=== PATIENT | male | born 1970 | race Caucasian/White ===

== ENCOUNTER 2017-05-06 14:06 | Emergency (ER) | payer OTHER ==
[2017-05-06] MEDS ORDERED: Acetaminophen TAB* 325 MG PO ONE (16:32)
[2017-05-06 16:45] LABS: Hematocrit 50 % (42-52); Hemoglobin 16.6 g/dl (14.0-18.0); Mean Corpuscular HGB Conc 33 g/dl (31-36); Mean Corpuscular Hemoglobin 29 pg (27-31); Mean Corpuscular Volume 87 fL (80-94); Mean Platelet Volume 9 um3 (7.4-10.4); Red Blood Count 5.76 10^6/ul (4.0-5.4); Red Cell Distribution Width 15 % (10.5-15); White Blood Count 10.6 10^3/ul (3.5-10.8)
[2017-05-06 17:02] LABS: Urine Bilirubin Negative (Negative); Urine Glucose Negative (Negative); Urine Nitrite Negative (Negative)
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
[2017-05-06 17:04] VITALS: BP 127/73
[2017-05-06 17:04] LABS: Albumin 4.2 g/dL (3.2-5.2); BUN/Creatinine Ratio 11.3 (8-20); Calcium 9.4 mg/dL (8.6-10.3); EGFR Non-African American 120.5 (>60); Globulin 2.8 g/dL (2-4); Potassium 3.9 mmol/L (3.5-5.0); Total Bilirubin 1.3 mg/dL (0.2-1.0)
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
== END 2017-05-06 18:28 | disposition home or self-care (01) ==
LOC: ED 14:06
DX: S50.02XA Contusion of left elbow, initial encounter (principal); S20.219A Contusion of unspecified front wall of thorax, initial encounter; S09.90XA Unspecified injury of head, initial encounter; R05 Cough; F17.210 Nicotine dependence, cigarettes, uncomplicated; V49.49XA Driver injured in collision with other motor vehicles in traffic accident, initial encounter; Y93.9 Activity, unspecified; Y92.9 Unspecified place or not applicable; Y99.9 Unspecified external cause status
CPT/HCPCS: 36415; 70450; 71020; 72125; 80053; 81003; 83605; 85025; 99282; A9270-GY

== ENCOUNTER 2017-12-12 22:45 | Emergency (ER) | payer BC, OTHER ==
[2017-12-13] MEDS ORDERED: predniSONE TAB* 20 MG PO ONE (00:31)
[2017-12-13] MEDS ORDERED: Albuterol/Ipratropium NEB.SOL* Albuterol 2.5 MG/Ipratropium 0.5 MG 3 ML INH ONE (00:31)
[2017-12-13 01:24] VITALS: BP 147/92
--- NOTE | 2017-12-13 06:06 | ED ---
Ilir Cha Angela, scribed for Mynor Khan MD on 12/13/17 at 0032 . Complex/Multi-Sys Presentation - HPI Summary HPI Summary: This pt is a 47 y/o male [place] [facility]. Pt reports he has had this hernia for 2 years now. He states his hernia has been increasing in size. He additionally c/o cough (for 1 year), congestion, runny nose, body aches, and chills for the past 3 days. He denies fever. Pt notes his abd hernia pain is aggravated with his cough. Pt denies urinary symptoms, constipation, diarrhea. Pt is a current smoker. - History Of Current Complaint Chief Complaint: EDAbdPain Time Seen by Provider: 12/13/17 00:21 Hx Obtained From: Patient Onset/Duration: Lasting Days, Still Present Timing: Days Location: Pain At: - inguinal hernia site Aggravating Factor(s): cough Alleviating Factor(s): nothing Associated Signs And Symptoms: Positive: Cough, Other - POS: inguinal hernia pain, congestion, rhinorrhea, body aches, chills.. Negative: Fever - Allergies/Home Medications Allergies/Adverse Reactions: Allergies Allergy/AdvReac Type Severity Reaction Status Date / Time No Known Allergies Allergy Verified 05/06/17 16:00 PMH/Surg Hx/FS Hx/Imm Hx Endocrine/Hematology History: Denies: Hx Diabetes Cardiovascular History: Denies: Hx Hypertension Infectious Disease History: No Infectious Disease History: Denies: Traveled Outside the [place] in Last 30 Days - Family History Known Family History: Negative: Cardiac Disease, Hypertension - Social History Alcohol Use: None Hx Substance Use: No Substance Use Type: Reports: None Hx Tobacco Use: Yes Smoking Status (MU): Heavy Every Day Tobacco Smoker Review of Systems Positive: Chills. Negative: Fever Positive: Nasal Discharge, Other - congestion Positive: Cough - chronic Gastrointestinal: Other - inguinal hernia pain Negative: Diarrhea, Other - constipation Positive: Myalgia All Other Systems Reviewed And Are Negative: Yes Physical Exam - Summary Physical Exam Summary: Appearance: Well appearing, no pain distress Skin: warm, dry, reflects adequate perfusion Head/face: normal Eyes: EOMI, ELIEZER ENT: normal Neck: supple, non-tender Respiratory: breath sounds present. Decreased aeration and expiratory wheeze. Cardiovascular: RRR, pulses symmetrical Abdomen: non-tender, soft. Large easily reducible inguinal hernia. Bowel: present Musculoskeletal: normal, strength/ROM intact Neuro: normal, sensory motor intact, A&Ox3 Triage Information Reviewed: Yes Vital Signs On Initial Exam: Initial Vitals Temp Pulse Resp BP Pulse Ox 97.5 F 83 16 138/110 100 12/12/17 22:49 12/12/17 22:49 12/12/17 22:49 12/12/17 22:49 12/12/17 22:49 Vital Signs Reviewed: Yes Diagnostics - Vital Signs Vital Signs Temp Pulse Resp BP Pulse Ox 12/12/17 22:49 97.5 F 83 16 138/110 100 - Laboratory Lab Statement: Any lab studies that have been ordered have been reviewed, and results considered in the medical decision making process. - Radiology Chest XR Xray Interpretation: No Acute Changes - no acute infiltrate. Radiology Interpretation Completed By: ED Physician Complex Multi-Symp Course/Dx Course Of Treatment: pt with coughing and FLU like illness with increasing discomfort in his long standing inguinal hernia. Hernia is soft and reducible without pain or redness. Refer to surg for repair. - Diagnoses Provider Diagnoses: Influenza-like illness, Reducible inguinal hernia Discharge - Discharge Plan Condition: Good Disposition: HOME Prescriptions: Albuterol HFA INHALER* [Ventolin HFA Inhaler*] 2 puff INH Q4H PRN #1 mdi PRN Reason: Shortness Of Breath Benzonatate [TESSALON 200 MG CAP] 200 mg PO Q6H PRN #20 cap PRN Reason: Cough Guaifenesin [Mucinex Maximum Strength] 1,200 mg PO BID #10 tab predniSONE TAB* [Deltasone TAB*] 50 mg PO DAILY #4 tab Patient Education Materials: Influenza (ED), Inguinal Hernia (ED) Forms: *Work Release Referrals: [facility] [Outside] Titi Stakr MD [Medical Doctor] - Additional Instructions: call surgery to schedule appt to have hernia evaluated for repair Return with increased hernia pain/redness/swelling; Return for short of breath, high fever, worse or other concerns. The documentation as recorded by the Ilir gutiérrez Angela accurately reflects the service I personally performed and the decisions made by , Mynor Khan MD.
--- NOTE | 2017-12-13 07:47 | RAD ---
INDICATION: Cough COMPARISON: May 06, 2017 TECHNIQUE: PA and lateral dual-energy views were obtained. FINDINGS: Bones/Soft Tissues: There are no acute bony findings. Cardiomediastinal: The cardiomediastinal silhouette is normal. Lungs: There are no infiltrates. There is hyperinflation. Pleura: There are no pleural effusions. Other: None IMPRESSION: HYPERINFLATION. NO ACTIVE DISEASE.
== END 2017-12-13 01:27 | disposition home or self-care (01) ==
LOC: ED 22:45
DX: J11.1 Influenza due to unidentified influenza virus with other respiratory manifestations (principal); K40.90 Unilateral inguinal hernia, without obstruction or gangrene, not specified as recurrent; R05 Cough; R09.81 Nasal congestion; J34.89 Other specified disorders of nose and nasal sinuses; F17.210 Nicotine dependence, cigarettes, uncomplicated
CPT/HCPCS: 71046; 94640; 99282; A9270-GY; J7512

== ENCOUNTER 2018-01-01 06:03 | Day surgery (SDC) | payer BC ==
--- NOTE | 2017-12-19 10:20 | HP ---
ADMISSION HISTORY AND PHYSICAL: DATE OF ADMISSION: 01/01/18 - [facility] ATTENDING SURGEON: Dr. Rafa Ceja * (DULCE Varghese dictating). CHIEF COMPLAINT: Right inguinal hernia. HISTORY OF PRESENT ILLNESS: This is a 47-year-old male, who first presented to our office in 2013, approximately 1 week after an injury at work when he noted a "pop". He was seen at that time by Dr. Wheeler, who diagnosed a right inguinal hernia and recommended repair. The patient states that his workplace denied the Workers' Comp claim and he did not pursue surgery at that time because he was otherwise asymptomatic. More recently, he has had an increased cough and noted increased swelling and discomfort in the right groin area. In the past, it had always self reduced when he is recumbent. He had severe pain in the right lower quadrant on 12/12/17 along with cough and flu-like symptoms and presented to the ED. A chest x- ray at that time showed no acute disease or infiltrate. He was treated with a short course of prednisone, Tessalon Perles and an inhaler (which he did not tolerate). At this point, he seems to be improving. He denies fevers or chills. He was seen in the office by Dr. Ceja on 12/16/17, at which time, exam confirmed the presence of a moderately large right inguinal hernia. This was reducible and nontender. Dr. Ceja has discussed with him the indications for repair, the risks, benefits, and alternatives including the option of no surgery. The patient understands the expected perioperative course and would like to proceed as scheduled with open repair right inguinal hernia with mesh. PAST MEDICAL HISTORY: Active tobacco use. He does not see a primary care provider. No other complaints. PAST SURGICAL HISTORY: Previous surgery includes dental extraction. CURRENT MEDICATIONS: 1. Mucinex D 1 tablet every 12 hours. 2. Tessalon Perles 1 tablet every 6 hours. 3. He just recently finished the short course of prednisone. 4. He is not currently using any inhalers. 5. He takes no other medications including fhpy-ocr-iulugdr or supplements. DRUG ALLERGIES: None. FAMILY HISTORY: Positive for what sounds like a DVT in his maternal aunt with no additional family history of thromboembolic disease. No family history of anesthesia problems or bleeding disorder. SOCIAL HISTORY: The patient lives with his daughter and 2 granddaughters. 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 He is a current smoker, 1-1/2 pack per day and we did discuss the benefits of smoking cessation and methods thereof. He denies use of alcohol or recreational drugs. REVIEW OF SYSTEMS: General: Recent flu-like illness as noted above. No other constitutional symptoms or acute illnesses. Cardiovascular: No chest pain, palpitations, or history of hypertension. Respiratory: No history of asthma. He has a significant smoking history and is an active smoker. Cough seems to have subsided significantly. GI: No nausea or vomiting. No significant lower GI symptoms with the exception of occasional constipation. He does not require any laxatives. : No difficulties reported in urination. Endocrine: No diabetes or thyroid dysfunction. PHYSICAL EXAMINATION GENERAL: Well-nourished, well-developed male, in no acute distress. VITAL SIGNS: Height 5 feet 8 inches, weight 185 pounds. Other vital signs per nursing. HEENT: Pupils are equal and round, reactive. EOMs intact. No conjunctival pallor. Oropharynx: He is edentulous. No intraoral lesions noted. NECK: No lymphadenopathy, thyromegaly, or masses. LUNGS: Clear to auscultation. No wheezes. HEART: Regular rate and rhythm. No murmur noted. BACK: No spinous process or CVA tenderness. ABDOMEN: Soft, nontender to palpation. No palpable masses or organomegaly with the exception of a moderately large right inguinal hernia examined today in the standing position only and apparently reducible and nontender. No hernia apparent on the left. RECTAL: Not done. EXTREMITIES: No edema. NEUROLOGICAL: Grossly intact. SKIN: Warm and dry. No suspicious rashes or lesions. IMPRESSION: Right inguinal hernia. PLAN: Open repair, right inguinal hernia with mesh. DULCE VARGHESE [id number]/[facility] #: [id number] MTDSandra
[~2018-01-01 06:03] MED LIST: Buffered Lidocaine 0.9% SYRIN* 5 ML/SYR SYRINGE INTRADERM ONE
[2018-01-01] MEDS ORDERED: ceFAZolin 1 GM in Dextrose (*) 2 GM/100 ML BAG IVPB ONE (06:10)
[2018-01-01] MEDS ORDERED: Buffered Lidocaine 0.9% SYRIN* 5 ML/SYR SYRINGE ONE (06:12)
[2018-01-01] MEDS ORDERED: Bupivacaine 0.5% SDV PF* 10-30ML VIAL ONE (07:02)
[2018-01-01] MEDS ORDERED: Lidocaine 1% MPF wEPI 200,000* 30 ML SDV ONE (07:02)
[2018-01-01] MEDS ORDERED: Bupivacaine 0.25% SDV* 30 ML ONE (07:03)
[2018-01-01] MEDS ORDERED: fentaNYL* 50 MCG/ML 2 ML VIAL (100 MCG VIAL) ONE ×2 (11:15→12:07)
[2018-01-01] MEDS ORDERED: Midazolam* 1 MG/ML 2 ML VIAL (2 MG) ONE ×2 (11:19→11:25)
[2018-01-01] MEDS ORDERED: Lidocaine 2% PF * 5 ML VIAL ONE (11:42)
[2018-01-01] MEDS ORDERED: Propofol* 10 MG/ML 20 ML BTL IV PUSH ONE (11:42)
[2018-01-01] MEDS ORDERED: fentaNYL* 50 MCG/ML 2 ML VIAL (100 MCG VIAL) IV PRN (12:11)
[2018-01-01] MEDS ORDERED: Naloxone* 0.4 MG/ML 1 ML VIAL IV PRN (12:11)
[2018-01-01] MEDS ORDERED: Ketorolac INJ* 30 MG/ML 1 ML VIAL IV PRN (12:11)
[2018-01-01] MEDS ORDERED: Ondansetron INJ* 2 MG/ML VIAL IV PRN (12:11)
[2018-01-01] MEDS ORDERED: oxyCODONE/Acetamin 5/325 MG* TAB PO PRN (12:52)
[2018-01-01] MEDS ORDERED: Ketorolac INJ* 30 MG/ML 1 ML VIAL ONE (13:23)
[2018-01-01 14:23] VITALS: BP 123/83
--- NOTE | 2018-01-09 05:33 | OP ---
DATE OF OPERATION: 01/01/18 - [facility] DATE OF : 74 SURGEON: Rafa Ceja MD CLEAN ENERGY POLICY ANALYST: DULCE Garber ANESTHESIA: Local MAC anesthesia. PRE-OP DIAGNOSIS: Right inguinal hernia. POST-OP DIAGNOSIS: Right inguinal hernia. OPERATIVE PROCEDURE: Right inguinal hernia repair with mesh. ESTIMATED BLOOD LOSS: Minimum blood loss. SPECIMEN: None. FLUIDS: 1000 mL of lactated Ringer's given. DRAINS: None. DESCRIPTION OF PROCEDURE: The patient was identified in the preoperative area, he was marked and taken to the operating suite, placed on table in the supine position. Preoperative antibiotics were given. Sequential devices placed on bilateral lower extremities. Gentle sedation was given. The patient's right groin hair was clipped and the abdomen prepped and draped in the standard surgical fashion and a time-out was performed. A right inguinal incision was made. This was deepened down through the layer down to the external oblique aponeurosis, which was incised along the direction of the fibers. Flaps were made both cephalad and caudad and the spermatic structures were then isolated on a [place] drain. A large sac which appeared first to be an indirect hernia was bluntly and sharply dissected off the spermatic structures. It then became apparent that this was a direct hernia, we identified the epigastric vessels. We continued our dissection down to transversalis fascia. We did incise this and make a plane, after we dunked the hernia sac deeper, we made a plane that would hold a Prolene hernia system. This was all bluntly dissected around the site right at the Yong's and laterally as well. Once we had this, we placed the mesh into the area, it was allowed to unfurl and painstakingly opened up along the full myopectineal orifice. We then opened up the outer portion of the mesh and tacked this to the pubic tubercle as well as along the shelving edge of the inguinal ligament. Slit was made to the external portion of this mesh to encompass the spermatic structures and mesh was then tucked laterally under the aponeurosis of external oblique. All sutures utilized were 2-0 Vicryl sutures. We then closed the external oblique aponeurosis in standard fashion and closed the incision in standard fashion. Steri-Strips and sterile dressing were applied. The patient tolerated the procedure well, was woken up in the OR and transferred to PACU in stable condition. [id number]/[facility] #: [id number] DUSTIN
== END 2018-01-01 14:23 | disposition home or self-care (01) ==
LOC: OR 06:03
PROVIDERS: ATTEND Surgery
DX: K40.90 Unilateral inguinal hernia, without obstruction or gangrene, not specified as recurrent (principal); Z72.0 Tobacco use
CPT/HCPCS: C1781; J0690; J1885; J2001; J2250; J2704; J3010

== ENCOUNTER 2019-08-29 19:57 | Emergency (ER) | payer BC, OTHER ==
[2019-08-29 20:18] VITALS: BP 153/81
[2019-08-29] MEDS ORDERED: Albuterol/Ipratropium NEB.SOL* Albuterol 2.5 MG/Ipratropium 0.5 MG 3 ML INH ONE (20:23)
[2019-08-29] MEDS ORDERED: Albuterol HFA INHALER* 8 gm MDI INH ONE (20:32)
[2019-08-29] MEDS ORDERED: predniSONE TAB* 20 MG PO ONE (20:32)
--- NOTE | 2019-08-29 20:34 | UC ---
Respiratory Complaint HPI - HPI Summary HPI Summary: 49-year-old male who states he's had a chronic cough for the past 10 years. He is a smoker. He states over the past few days he's had some wheezing and tight cough. He's been using Primatene Mist [id number]. Denies any fever or chills. - History of Current Complaint Chief Complaint: UCRespiratory Stated Complaint: COUGH Time Seen by Provider: 08/29/19 20:10 Hx Obtained From: Patient Onset/Duration: Gradual Onset Timing: Intermittent Episodes Severity Initially: Mild Severity Currently: Mild Pain Intensity: 0 Character: Cough: Nonproductive Aggravating Factors: Nothing Alleviating Factors: Nothing Associated Signs And Symptoms: Positive: URI, Nasal Congestion - Allergies/Home Medications Allergies/Adverse Reactions: Allergies Allergy/AdvReac Type Severity Reaction Status Date / Time No Known Allergies Allergy Verified 08/29/19 20:12 Home Medications: Home Medications EPINEPHrine [Primatene Mist] 4 puff BID 08/29/19 [History Confirmed 08/29/19] PMH/Surg Hx/FS Hx/Imm Hx Previously Healthy: Yes - Surgical History Surgical History: Yes Surgery Procedure, Year, and Place: DENTAL EXTRACTION. Hernia - Family History Known Family History: Negative: Cardiac Disease, Hypertension - Social History Alcohol Use: None Substance Use Type: None Smoking Status (MU): Heavy Every Day Tobacco Smoker Amount Used/How Often: 1/2 PPD X 29 YEARS Have You Smoked in the Last Year: Yes Household Exposure Type: Cigarettes Review of Systems All Other Systems Reviewed And Are Negative: Yes ENT: Positive: Nasal Discharge Respiratory: Positive: Cough, Other - Wheezing and tight cough Is Patient Immunocompromised?: No Physical Exam Triage Information Reviewed: Yes Appearance: Well-Appearing, No Pain Distress, Thin Vital Signs: Initial Vital Signs Temp 98.2 F 08/29/19 20:14 Pulse 87 08/29/19 20:14 Resp 24 08/29/19 20:14 BP 153/81 08/29/19 20:14 Pulse Ox 96 08/29/19 20:14 Vital Signs Reviewed: Yes Eyes: Positive: Conjunctiva Clear ENT: Positive: Pharynx normal, Nasal congestion, Nasal drainage - Clear nasal coryza, TMs normal, Uvula midline Neck: Positive: Supple, Nontender, No Lymphadenopathy Respiratory: Positive: No respiratory distress, No accessory muscle use, Wheezing - Mild wheezing with forced expiration. Cardiovascular: Positive: RRR, No Murmur, Pulses Normal, Brisk Capillary Refill Musculoskeletal Exam: Normal Neurological Exam: Normal Psychological Exam: Normal Skin Exam: Normal Respiratory Course/Dx - Course Course Of Treatment: Chest x-ray: Negative For infiltrate The patient was given a DuoNeb treatment and he had increased aeration continues to have mild expiratory wheezing. No distress. He was given prednisone 40 mg by mouth here. He was given albuterol metered-dose inhaler with a spacer and taught how to use it he is to continue that 2 puffs every 4 hours as needed for wheezing or tight cough. He is going to be on tapering prednisone. He has no primary care physician therefore he can follow up at the [facility] in 3 or 4 days if no improvement. He's to go to the emergency room if he has any worsening symptoms. The patient is agreeable to this plan of action. - Differential Dx/Diagnosis Provider Diagnosis: Bronchitis Discharge ED - Sign-Out/Discharge Documenting (check all that apply): Patient Departure All imaging exams completed and their final reports reviewed: No - Discharge Plan Condition: Fair Disposition: HOME Prescriptions: predniSONE TAB* [Deltasone 10 MG TAB*] 10 mg PO DAILY 11 Days #26 tab Patient Education Materials: Acute Bronchitis (ED) Referrals: [facility] [Outside] No Primary Care Phys,NOPCP [Primary Care Provider] - Additional Instructions: Increase fluids. Start your prednisone tomorrow and take it with food. Use the albuterol inhaler with the spacer 2 puffs every 4 hours as needed for tight cough or wheezing. Definite follow up at [facility] if you have no improvement in 3 or 4 days. If you have worsening symptoms, shortness of breath or difficulty breathing your to go to the emergency room for further treatment. - Billing Disposition and Condition Condition: FAIR Disposition: Home
--- NOTE | 2019-08-30 11:15 | UC ---
- Progress Note Progress Note: Final radiologist reading for chest x-ray from August 29, 2019 comes back as no acute disease process. Provider for the same date is the same therefore there is no discrepancy. Course/Dx - Diagnoses Provider Diagnoses: Bronchitis Discharge ED - Sign-Out/Discharge Documenting (check all that apply): Patient Departure All imaging exams completed and their final reports reviewed: Yes - Discharge Plan Condition: Fair Disposition: HOME Prescriptions: predniSONE TAB* [Deltasone 10 MG TAB*] 10 mg PO DAILY 11 Days #26 tab Patient Education Materials: Acute Bronchitis (ED) Referrals: [facility] [Outside] No Primary Care Phys,NOPCP [Primary Care Provider] - Additional Instructions: Increase fluids. Start your prednisone tomorrow and take it with food. Use the albuterol inhaler with the spacer 2 puffs every 4 hours as needed for tight cough or wheezing. Definite follow up at [facility] if you have no improvement in 3 or 4 days. If you have worsening symptoms, shortness of breath or difficulty breathing your to go to the emergency room for further treatment. - Billing Disposition and Condition Condition: FAIR Disposition: Home
== END 2019-08-29 20:57 | disposition home or self-care (01) ==
LOC: UCCORT 19:57
DX: J40 Bronchitis, not specified as acute or chronic (principal); F17.210 Nicotine dependence, cigarettes, uncomplicated; R06.2 Wheezing; R09.81 Nasal congestion
CPT/HCPCS: 71046; 99213; A9270-GY; G0463; J7512